=== PATIENT | female | born 2000 | race Caucasian/White ===

== ENCOUNTER 2020-01-29 15:38 | Emergency (ER) | payer BC ==
[~2020-01-29] VITALS: Ht 170.2 cm; Wt 59.0 kg
[2020-01-29 15:38] VITALS: BP_SYST 132
--- NOTE | 2020-01-29 15:38 | NUR ---
BROUGHT BACK TO BED #4 AND TRIAGED. REPORT GIVEN TO AGNIESZKA
--- NOTE | 2020-01-29 15:44 | NUR ---
PT ARRIVES FROM HOME W/ C/O RLQ ABD PAIN SINCE LAST NIGHT. PAIN IS 7/10, SHARP, AND CONSTANT. PT DENIES N/V/D.
--- NOTE | 2020-01-29 15:50 | NUR ---
ER at bedside examining patient.
--- NOTE | 2020-01-29 16:00 | NUR ---
# 20 gauge angiocath placed to LAC. Use of asceptic technique. Opsite placed over site. Blood return noted. Blood for lab drawn from site. Flushed with 10 cc of normal saline. No evidence of infiltration noted. Patient tolerated well.
[2020-01-29] MEDS ORDERED: NACL 0.9% 1,000 ML IV ONE (16:15)
--- NOTE | 2020-01-29 16:20 | NUR ---
Patient transported to radiology via gurney, accompanied by crm technical lead.
[2020-01-29 16:30] LABS: BILIRUBIN,URINE NEGATIVE (NEGATIVE); BLOOD, URINE NEGATIVE (NEGATIVE); CLARITY/URINE CLEAR (CLEAR); GLUCOSE,URINE NEGATIVE (NEGATIVE); KETONES,URINE NEGATIVE (NEGATIVE); LEUKOCYTE ESTERASE ,URINE NEGATIVE (NEGATIVE); NITRITE, URINE NEGATIVE (NEGATIVE); PROTEIN URINE NEGATIVE (NEGATIVE); UROBILINOGEN,URINE 0.2 (0.2-1.0)
[2020-01-29 16:40] LABS: BASOPHILS % (AUTO) 0.4 % (0.0-2.0); EOSINOPHILS # (AUTO) 0.2 K/uL (0.0-0.4); EOSINOPHILS % (AUTO) 2.7 % (0.0-4.0); HEMATOCRIT 39.1 % (36-48); HEMOGLOBIN 13.4 g/dL (12.0-16.0); LYMPHOCYTES # (AUTO) 1.4 K/uL (1.0-5.5); LYMPHOCYTES % (AUTO) 21.8 % (20.5-51.5); MEAN CORPUSCULAR HEMOGLOBIN 32 pg (27-31); MEAN CORPUSCULAR HGB CONC 34 % (32-36); MEAN CORPUSCULAR VOLUME 94 fL (79.0-98.0); MONOCYTES # (AUTO) 0.5 K/uL (0.0-1.0); MONOCYTES % (AUTO) 8.2 % (1.7-9.3); NEUTROPHILS # (AUTO) 4.2 K/uL (1.8-7.7); NEUTROPHILS % (AUTO) 66.9 % (40.0-70.0); PLATELET COUNT (AUTO) 257 K/uL (130-430); RED BLOOD CELL COUNT(AUTO) 4.16 MIL/uL (4.2-6.2); WHITE BLOOD COUNT (AUTO) 6.2 K/uL (4.5-11.0)
--- NOTE | 2020-01-29 16:40 | NUR ---
pt returned from CT
[2020-01-29] MEDS ORDERED: IOHEXOL 100 ML IV ONE (17:01)
[2020-01-29 17:02] LABS: COLOR,URINE STRAW (YELLOW)
[2020-01-29 17:05] LABS: CALCIUM 8.5 mg/dL (8.4-11.0); CREATININE 0.61 mg/dL (0.55-1.30); POTASSIUM 4.3 mmol/L (3.5-5.1)
[2020-01-29 17:21] LABS: ALBUMIN 3.3 g/dL (3.4-4.8); TOTAL BILIRUBIN 0.3 mg/dL (0.0-1.0)
[2020-01-29 18:22] VITALS: BP_SYST 122
--- NOTE | 2020-01-29 18:26 | NUR ---
Patient given written and verbal discharge instructions and verbalizes understanding. ER MD discussed with patient the results and treatment provided. Patient in stable condition. ID arm band removed. IV catheter removed intact and dressing applied, no active bleeding. Rx of [place] and Motrin given. Patient educated on pain management and to follow up with PMD. Pain Scale 0/10. Opportunity for questions provided and answered. Medication side effect fact sheet provided.
== END 2020-01-29 18:26 | disposition home or self-care (01) ==
LOC: SED 15:38
DX: R10.31 Right lower quadrant pain (principal)
CPT/HCPCS: 36415; 74177; 80053; 81003; 83690; 85025; 96360; 99285; J7030; Q9967